=== PATIENT | female | born 1975 | race Caucasian/White ===

== ENCOUNTER 2020-04-03 12:39 | Outpatient (RCR) | payer MEDICARE, MEDICAID, SELFPAY | END 2020-05-10 13:24 | disposition home or self-care (01) | LOC: HO.WCC 12:39 | PROVIDERS: PCP Internal Medicine; Visit Provider Physician Assistant Surgical | DX: E11.621 Type 2 diabetes mellitus with foot ulcer (principal); L97.522 Non-pressure chronic ulcer of other part of left foot with fat layer exposed; L97.512 Non-pressure chronic ulcer of other part of right foot with fat layer exposed; E11.51 Type 2 diabetes mellitus with diabetic peripheral angiopathy without gangrene; L08.9 Local infection of the skin and subcutaneous tissue, unspecified; Z79.2 Long term (current) use of antibiotics; Z99.2 Dependence on renal dialysis; Z79.4 Long term (current) use of insulin; Z79.899 Other long term (current) drug therapy | CPT/HCPCS: 11042; 87071; 87077; 87147; 87186; 87205 ==